=== PATIENT | female | born 1980 | race Caucasian/White ===

== ENCOUNTER 2017-03-01 14:01 | Emergency (ER) | payer OTHER ==
[2017-03-01] MEDS ORDERED: guaiFENesin/DEXTROMETHORPHAN 10 ML UDC PO STA (15:40)
[2017-03-01] MEDS ORDERED: BENZONATATE 100 MG CAPSULE PO STA (15:40)
[2017-03-01] MEDS ORDERED: BENZONATATE 100 MG CAPSULE PO ONE (15:46)
[2017-03-01] MEDS ORDERED: guaiFENesin/DEXTROMETHORPHAN 10 ML UDC ONE (15:46)
== END 2017-03-01 17:22 | disposition home or self-care (01) ==
DX: J40 Bronchitis, not specified as acute or chronic (principal)
CPT/HCPCS: 71020; 99283; A9270

== ENCOUNTER 2017-09-29 14:01 | Outpatient (CLI) | payer OTHER ==
--- NOTE | 2017-10-01 09:26 | MRI Report ---
EXAM: RIGHT KNEE MRI WITHOUT CONTRAST EXAM DATE: 09/29/2017 03:02 PM. CLINICAL HISTORY: Right knee pain. COMPARISON: Prior knee MRI 01/01/2016. TECHNIQUE: Multiplanar, multisequence T1-weighted and fluid-sensitive sequences of the knee without c ontrast. Other: None. FINDINGS: Cruciate ligaments: The anterior and posterior cruciate ligaments appear intact. Medial meniscus: Intact. No tear is identified. Lateral meniscus: Intact. No tear is identified. Collateral limits: The medial and fibular collateral limits appear intact. Bones and articular surfaces: Again demonstrated is a separate ossification along the medial margin o f the patella which may represent an old ununited fracture. There is a small amount of edema at the a pparent synchondrosis. Cartilage thinning and irregularity over the patella is similar to prior. Smal l focus of subcortical marrow edema at the posterior margin of the medial tibial plateau. Etiology un certain. Possible bone contusion or stress-related edema at the semimembranosus insertion. Small irre gular ossification at the inferior medial margin of the patella may represent another old fracture bu t is unchanged from prior. Extensor mechanism: The patellar tendon and quadriceps insertion appear intact. IMPRESSION: 1. No significant interval change in moderate patellar chondromalacia. 2. 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 3. New or increased focus of subcortical marrow edema at the posterior aspect of the medial tibial pl ateau. Possible stress-related edema at the semimembranosus insertion versus bone contusion. [facility] SECTION Referring Provider Line: [phone] SITE ID: [id number]
== END 2017-09-29 14:02 | disposition home or self-care (01) ==
LOC: DI 14:01
PROVIDERS: ATTEND Family Medicine
DX: M22.41 Chondromalacia patellae, right knee (principal); S82.001K Unspecified fracture of right patella, subsequent encounter for closed fracture with nonunion

== ENCOUNTER 2018-07-15 18:16 | Emergency (ER) | payer OTHER ==
--- NOTE | 2018-07-15 18:51 | ED Physician Documentation ---
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 - Present Medications Home Medications: Ambulatory Orders Medication Instructions Recorded Confirmed Phenazopyridine HCl [Pyridium] 200 mg PO TID PRN #6 tablet 07/15/18 Sulfamethoxazole/Trimethoprim 1 each PO BID #10 tablet 07/15/18 [Sulfamethoxazole-Tmp Ds Tablet] - Allergies Allergies/Adverse Reactions: Allergies Allergy/AdvReac Type Severity Reaction Status Date / Time No Known Drug Allergies Allergy Verified 07/15/18 18:51 - Social History Does the pt smoke?: No Smoking Status: Never smoker Does the pt drink ETOH?: Yes Does the pt have substance abuse?: No - Immunizations Immunizations are current?: Yes - POLST Patient has POLST: No PD ED PE NORMAL - Vitals Vital signs reviewed: Yes - General General: Alert and oriented X 3, No acute distress - Abdomen Abdomen: Normal bowel sounds, Soft, Non tender - Back Back: Other (Mild right flank tenderness) - Extremities Extremities: No edema, No calf tenderness / cord - Neuro Neuro: Alert and oriented X 3, Normal speech - Psych Psych: Normal mood, Normal affect Results - Vitals Vitals: Vital Signs - 24 hr 07/15/18 07/15/18 18:48 18:52 Temperature 37.2 C 99 C H Heart Rate 88 Respiratory 20 Rate Blood Pressure 114/81 H O2 Saturation 100 Oxygen O2 Source Room air - Labs Labs: Laboratory Tests 07/15/18 18:50 Urine Color YELLOW Urine Clarity N Urine pH 7.5 Ur Specific Mereta 1.015 Urine Protein NEGATIVE Urine Glucose (UA) NEGATIVE Urine Ketones NEGATIVE Urine Occult Blood SMALL H Urine Nitrite NEGATIVE Urine Bilirubin NEGATIVE Urine Urobilinogen 0.2 (NORMAL) Ur Leukocyte Esterase NEGATIVE Urine RBC 6-10 H Urine WBC 0-3 Ur Squamous Epith Cells MANY Squamous H Urine Bacteria Many H Ur Microscopic Review INDICATED Urine Culture Comments NOT INDICATED Urine HCG, Qual NEGATIVE PD MEDICAL DECISION MAKING - Sepsis Event Vital Signs: Vital Signs - 24 hr 07/15/18 07/15/18 18:48 18:52 Temperature 37.2 C 99 C H Heart Rate 88 Respiratory 20 Rate Blood Pressure 114/81 H O2 Saturation 100 Oxygen O2 Source Room air Departure - Departure Disposition: 01 Home, Self Care Clinical Impression: Cystitis Condition: Good Record reviewed to determine appropriate education?: Yes Instructions: ED UTI Cystitis Female Prescriptions: Phenazopyridine HCl [Pyridium] 200 mg PO TID PRN #6 tablet PRN Reason: dysuria Sulfamethoxazole/Trimethoprim [Sulfamethoxazole-Tmp Ds Tablet] 1 each PO BID #10 tablet Comments: Call your doctor to arrange a follow-up appointment, make the next available appointment. In the interim, return anytime if worse or if new symptoms develop.
[2018-07-15 18:53] VITALS: BP 114/81
[2018-07-15 19:11] LABS: BILIRUBIN,URINE NEGATIVE (NEGATIVE); GLUCOSE, URINE (UA) NEGATIVE (NEGATIVE); KETONES,URINE (UA) NEGATIVE (NEGATIVE); LEUKOCYTE ESTERASE, URINE NEGATIVE (NEGATIVE); NITRITE,URINE NEGATIVE (NEGATIVE); OCCULT BLOOD,URINE SMALL (NEGATIVE); PH,URINE 7.5 PH (5.0-7.5); PROTEIN,URINE NEGATIVE (NEGATIVE); UROBILINOGEN,URINE 0.2 (NORMAL) E.U./dL (NORMAL)
[2018-07-15 19:18] LABS: CLARITY,URINE N (CLEAR); HCG UR QUAL NEGATIVE
[2018-07-15 19:33] LABS: BACTERIA,URINE Many /HPF (None Seen); SQUAMOUS EPITHELIAL CELL,UR MANY Squamous (<= Few)
[2018-07-15] MEDS ORDERED: SULFAMETH/TRIMETH DS 800/160 MG TABLET PO STA (19:38)
[2018-07-15] MEDS ORDERED: PHENAZOPYRIDINE 100 MG TABLET PO STA (19:38)
== END 2018-07-15 19:46 | disposition home or self-care (01) ==
LOC: ED 18:16
DX: N30.90 Cystitis, unspecified without hematuria (principal)
CPT/HCPCS: 81001; 81025; 99283; A9270; 81003; 87086

== ENCOUNTER 2018-08-01 14:30 | Emergency (ER) | payer OTHER ==
[2018-08-01 15:41] LABS: BASOPHILS % (AUTO) 0.6 %; EOSINOPHILS % (AUTO) 0.2 %; HGB - HEMOGLOBIN 12.9 g/dL (12.0-16.0); LYMPHOCYTES # (AUTO) 1.8 10^3/uL (1.5-3.5); LYMPHOCYTES % (AUTO) 31.8 %; MEAN CORPUSCULAR HEMOGLOBIN 29.7 pg (27.0-31.0); MEAN CORPUSCULAR HGB CONC 33.7 g/dL (32.0-36.0); MEAN CORPUSCULAR VOLUME 87.9 fL (81.0-99.0); MEAN PLATELET VOLUME 8.7 fL (7.9-10.8); MONOCYTES # (AUTO) 0.5 10^3/uL (0.0-1.0); MONOCYTES % (AUTO) 8.6 %; NEUTROPHILS # (AUTO) 3.4 10^3/uL (1.5-6.6); NEUTROPHILS % (AUTO) 58.8 %; PLT - PLATELET COUNT 255 10^3/uL (130-450); RED BLOOD COUNT 4.36 10^6/uL (4.20-5.40); RED CELL DISTRIBUTION WIDTH 13.5 % (12.0-15.0); WHITE BLOOD COUNT 5.7 x10^3/uL (4.8-10.8)
[2018-08-01 15:48] LABS: ALBUMIN 4.6 g/dL (3.2-5.5); ALBUMIN/GLOBULIN RATIO 1.5 (1.0-2.2); BILIRUBIN,TOTAL 0.9 mg/dL (0.2-1.0); CALCIUM 9.2 mg/dL (8.5-10.3); CREATININE 0.7 mg/dL (0.4-1.0); TOTAL PROTEIN 7.6 g/dL (6.7-8.2)
--- NOTE | 2018-08-01 16:03 | CT Report ---
Reason: Right pupil dilated compared to left. Possible sz. Procedure Date: 08/01/2018 Accession Number: [id number] / [id number] Procedure: CT - Head W/O CPT Code: FULL RESULT: EXAM: CT HEAD EXAM DATE: 08/01/2018 03:52 PM. CLINICAL HISTORY: Right pupil dilated compared to left. Possible sz. COMPARISON: None. TECHNIQUE: Multiaxial CT images were obtained from the foramen magnum to the vertex. Reformats: Sagittal and coronal. IV contrast: None. In accordance with CT protocol optimization, one or more of the following dose reduction techniques were utilized for this exam: automated exposure control, adjustment of mA and/or KV based on patient size, or use of iterative reconstructive technique. FINDINGS: Parenchyma: No intraparenchymal hemorrhage. No evidence of mass, midline shift, or CT findings of infarction. Chin-white differentiation is distinct. Extraaxial Spaces: Normal for age. No subdural or epidural collections. Ventricles: Normal in size and position. Sinuses and Orbits: Imaged paranasal sinuses, orbits, and mastoids show no significant abnormality. Bones: Unremarkable. Other: None. IMPRESSION: Normal head CT. [facility]
--- NOTE | 2018-08-01 16:14 | ED Physician Documentation ---
History of Present Illness - Stated complaint Stated Complaint: ADVERSE MED REACTION - Chief complaint Chief Complaint: Neuro - History obtained from History obtained from: Patient - History of Present Illness Timing: Last night - Additonal information Additional information: The patient is a 38-year-old female who reports feeling confused and "mentally slow" today. She has a history of depression, and was prescribed Effexor which she took for the first time last night. The dose was 75 mg extended release. She reports that her children were unable to awaken her at 12:30 last night, and told her she was "stiff." Today she feels confused and had 4 or 5 episodes of vomiting. She went to work, but her coworkers became concerned because she was not acting right. When looking in the mirror, she noticed that her right pupil was dilated compared to the left. She denies history of similar symptoms in the past. She does feel slightly better now than she did earlier today. Review of Systems Constitutional: reports: Fatigue. denies: Fever Eyes: reports: Other (Dilated right pupil.) Ears: denies: Tinnitus/ringing Nose: denies: Congestion Throat: denies: Sore throat Cardiac: denies: Chest pain / pressure Respiratory: denies: Dyspnea, Cough GI: reports: Nausea, Vomiting. denies: Abdominal Pain, Diarrhea : denies: Dysuria Skin: denies: Rash Musculoskeletal: denies: Back pain, Extremity pain Neurologic: reports: Confused. 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 - Present Medications Home Medications: Ambulatory Orders Medication Instructions Recorded Confirmed Venlafaxine ER [Effexor ER] 75 mg PO DAILY 08/01/18 08/01/18 - Allergies Allergies/Adverse Reactions: Allergies Allergy/AdvReac Type Severity Reaction Status Date / Time No Known Drug Allergies Allergy Verified 08/01/18 14:43 - Social History Does the pt smoke?: No Smoking Status: Never smoker Does the pt drink ETOH?: Yes Does the pt have substance abuse?: No - Immunizations Immunizations are current?: Yes - POLST Patient has POLST: No PD ED PE NORMAL - Vitals Vital signs reviewed: Yes (normal) - General General: Alert and oriented X 3, Well developed/nourished - HEENT HEENT: Atraumatic, EOMI, Ears normal, Pharynx benign, Other (Right pupil is 5 mm, left pupil is 4 mm. Both are equally reactive to light and accommodation.) - Neck Neck: Supple, no meningeal sign, No adenopathy - Cardiac Cardiac: RRR, No murmur - Respiratory Respiratory: No respiratory distress, Clear bilaterally - Abdomen Abdomen: Soft, Non tender - Back Back: No CVA TTP - Derm Derm: No rash - Extremities Extremities: No tenderness to palpate, No edema, No calf tenderness / cord - Neuro Neuro: Alert and oriented X 3, No motor deficit, No sensory deficit Eye Opening: Spontaneous Motor: Obeys Commands Verbal: Oriented GCS Score: 15 Results - Vitals Vitals: Vital Signs - 24 hr 08/01/18 14:41 Temperature 36.6 C Heart Rate 93 Respiratory 18 Rate Blood Pressure 101/78 O2 Saturation 100 Oxygen O2 Source Room air - Labs Labs: Laboratory Tests 08/01/18 08/01/18 15:21 15:21 WBC 5.7 RBC 4.36 Hgb 12.9 Hct 38.3 MCV 87.9 MCH 29.7 MCHC 33.7 RDW 13.5 Plt Count 255 MPV 8.7 Neut # (Auto) 3.4 Lymph # (Auto) 1.8 Wirt # (Auto) 0.5 Eos # (Auto) 0.0 Baso # (Auto) 0.0 Absolute Nucleated RBC 0.00 Nucleated RBC % 0.0 Sodium 136 Potassium 3.5 Chloride 102 Carbon Dioxide 25 Anion Gap 9.0 BUN 14 Creatinine 0.7 Estimated GFR (MDRD) 94 Glucose 85 Calcium 9.2 Total Bilirubin 0.9 AST < 10 L ALT 14 Alkaline Phosphatase 54 Total Protein 7.6 Albumin 4.6 Globulin 3.0 Albumin/Globulin Ratio 1.5 Lipase 26 - Rads (name of study) head CT Radiology: Prelim report reviewed, EMP read contemporaneously, See rad report (Normal head CT.) PD MEDICAL DECISION MAKING - ED course Complexity details: reviewed results, re-evaluated patient, considered differential, d/w patient ED course: The patient's presentation is most likely a result of adverse reaction to Effex or. The mild anisocoria is puzzling, but there is no clinical evidence of acute intra-ocular abnormality, and head CT is normal. The patient's symptoms started appear slightly improved over the course of her time in the emergency department. CBC and chemistry panel are normal. I do not think further workup or emergent intervention is clinically indicated. I discussed with her the results of her workup, the importance of outpatient follow-up, as well as potentially worrisome signs or symptoms that should prompt reevaluation in the emergency department. - Sepsis Event Vital Signs: Vital Signs - 24 hr 08/01/18 14:41 Temperature 36.6 C Heart Rate 93 Respiratory 18 Rate Blood Pressure 101/78 O2 Saturation 100 Oxygen O2 Source Room air Departure - Departure Disposition: 01 Home, Self Care Clinical Impression: Adverse drug reaction Qualifiers: Encounter type: initial encounter Qualified Code(s): T50.905A - Adverse effect of unspecified drugs, medicaments and biological substances, initial encounter Condition: Stable Instructions: ED Drug React Adverse Other Follow-Up: VICTORIA SNIDER [Primary Care Provider] - Comments: Discontinue Effexor. Follow-up with your primary physician tomorrow as planned. Return to the emergency department if increasing mental confusion, persistent vomiting, or otherwise worsening symptoms. Forms: Activity restrictions Discharge Date/Time: 08/01/18 16:25
[2018-08-01 17:52] VITALS: BP 102/74
== END 2018-08-01 16:25 | disposition home or self-care (01) ==
LOC: ED 14:30
DX: R41.0 Disorientation, unspecified (principal); H57.02 Anisocoria; R11.2 Nausea with vomiting, unspecified; T43.215A Adverse effect of selective serotonin and norepinephrine reuptake inhibitors, initial encounter
CPT/HCPCS: 36415; 70450; 80053; 83690; 85025; 99283

== ENCOUNTER 2019-06-12 13:18 | Emergency (ER) | payer OTHER ==
[2019-06-12 13:26] VITALS: BP 116/80
--- NOTE | 2019-06-12 14:09 | ED Physician Documentation ---
History of Present Illness - Stated complaint Stated Complaint: RT SIDE FACIAL NUMBNESS - Chief complaint Chief Complaint: Neuro - History obtained from History obtained from: Patient - History of Present Illness Timing: Today Pain level max: 0 Pain level now: 0 - Additonal information Additional information: 38-year-old female presents the emergency department stating that the right side of her face felt swollen this morning. She states that she applied ice and went back to sleep. She woke up and has having numbness on the entirety of the face. She also states that she is having difficulty closing her right eye fully and moving the right side of her face. No recent illnesses. No neck or back pain. No headache. No recent trauma. Nothing makes it better or worse. Has never had similar symptoms in the past. 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 - Present Medications Home Medications: Ambulatory Orders Medication Instructions Recorded Confirmed Venlafaxine ER [Effexor ER] 75 mg PO DAILY 08/01/18 08/01/18 Valacyclovir HCl [Valacyclovir] 1,000 mg PO TID #21 tablet 06/12/19 predniSONE [Prednisone] 60 mg PO DAILY #21 tablet 06/12/19 - Allergies Allergies/Adverse Reactions: Allergies Allergy/AdvReac Type Severity Reaction Status Date / Time venlafaxine [From Effexor] Allergy Unknown Verified 06/12/19 13:27 - Social History Does the pt smoke?: No Smoking Status: Never smoker Does the pt drink ETOH?: Yes Does the pt have substance abuse?: No - Immunizations Immunizations are current?: Yes - POLST Patient has POLST: No PD ED PE NORMAL - Vitals Vital signs reviewed: Yes - General General: Alert and oriented X 3, No acute distress, Well developed/nourished - HEENT HEENT: Atraumatic, PERRL, EOMI, Ears normal, Moist mucous membranes, Pharynx benign - Neck Neck: Supple, no meningeal sign, No bony TTP, No adenopathy, No JVD, No bruit - Cardiac Cardiac: RRR, No murmur, Strong equal pulses - Respiratory Respiratory: No respiratory distress, Clear bilaterally - Abdomen Abdomen: Soft, Non tender, Non distended - Derm Derm: Warm and dry - Neuro Neuro: Alert and oriented X 3 - Psych Psych: Normal mood, Normal affect - Free text exam Free text exam: Patient with decreased movement of the right forehead with raising the eyebrows. Flattening of the nasolabial fold on the right side of the face. Decreased motion of the right side of the face. Positive Mcfadden's phenomena. Decreased sensation over the right side of the face as well. Otherwise normal neurological exam of the remainder of the body. Results - Vitals Vitals: Vital Signs - 24 hr 06/12/19 13:23 Temperature 36.7 C Heart Rate 76 Respiratory 16 Rate Blood Pressure 116/80 O2 Saturation 100 Oxygen O2 Source Room air PD MEDICAL DECISION MAKING - ED course Complexity details: considered differential, d/w patient ED course: 38-year-old female presents to the emergency room with what appears to be Mcfadden's palsy. Will place on prednisone and Valtrex. She is well-appearing, nontoxic. Afebrile. No evidence of acute stroke. No evidence of carotid dissection. No Rocky syndrome. Patient counseled regarding signs and symptoms for which I believe and urgent re-evaluation would be necessary. Patient with good understanding of and agreement to plan and is comfortable going home at this time This document was made in part using voice recognition software. While efforts are made to proofread this document, sound alike and grammatical errors may occur. Departure - Departure Disposition: 01 Home, Self Care Clinical Impression: Mcfadden's palsy Condition: Good Instructions: ED [place] Palsy Follow-Up: Your,doctor in 1 week [Other] Prescriptions: predniSONE [Prednisone] 60 mg PO DAILY #21 tablet Valacyclovir HCl [Valacyclovir] 1,000 mg PO TID #21 tablet Comments: Return if you worsen. Use the medications as prescribed. You can also use artificial tears if your right eye begins to feel dry. Follow-up with your doctor within 1 week for repeat evaluation. Discharge Date/Time: 06/12/19 14:37
== END 2019-06-12 14:37 | disposition home or self-care (01) ==
LOC: ED 13:18
DX: G51.0 Bell's palsy (principal)
CPT/HCPCS: 99282; 99284

== ENCOUNTER 2020-03-21 14:52 | Emergency (ER) | payer OTHER ==
--- NOTE | 2020-03-21 15:25 | ED Physician Documentation ---
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 Has 3 children age 18, 16, 13. Her 18-year-old is getting in few weeks. She states she has been feeling increasingly burned out at work and at home. Feels stressed. Does not feel suicidal or homicidal. She has been trying to see a psychiatrist or a counselor for the last year and a half, but has been unable to. Nothing makes it better or worse. She states she started crying today and does not know what to do. Review of Systems Constitutional: denies: Fever, Chills Nose: denies: Rhinorrhea / runny nose, Congestion GI: denies: Vomiting, Diarrhea Skin: denies: Rash Musculoskeletal: denies: Neck pain, Back pain Neurologic: denies: Focal weakness, Numbness, Headache Psychiatric: reports: Anxiety. 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 - Present Medications Home Medications: Ambulatory Orders Medication Instructions Recorded Confirmed Venlafaxine ER [Effexor ER] 75 mg PO DAILY 08/01/18 08/01/18 Valacyclovir HCl [Valacyclovir] 1,000 mg PO TID #21 tablet 06/12/19 predniSONE [Prednisone] 60 mg PO DAILY #21 tablet 06/12/19 Alprazolam [Xanax] 0.5 mg PO BID PRN #7 tablet 03/21/20 - Allergies Allergies/Adverse Reactions: Allergies Allergy/AdvReac Type Severity Reaction Status Date / Time venlafaxine [From Effexor] Allergy Unknown Verified 03/21/20 14:55 - Social History Does the pt smoke?: No Smoking Status: Former smoker Does the pt drink ETOH?: Yes Does the pt have substance abuse?: No - Immunizations Immunizations are current?: Yes - POLST Patient has POLST: No PD ED PE NORMAL - Vitals Vital signs reviewed: Yes - General General: Alert and oriented X 3, No acute distress, Well developed/nourished - HEENT HEENT: PERRL, Moist mucous membranes - Neck Neck: Supple, no meningeal sign - Cardiac Cardiac: RRR, Strong equal pulses - Respiratory Respiratory: No respiratory distress, Clear bilaterally - Abdomen Abdomen: Soft, Non tender, Non distended - Derm Derm: Warm and dry, No rash - Extremities Extremities: No edema, No calf tenderness / cord - Neuro Neuro: Alert and oriented X 3 - Psych Psych: Other (Tearful, anxious) Results - Vitals Vitals: Vital Signs - 24 hr 03/21/20 03/21/20 14:55 15:20 Temperature 37.0 C 36.9 C Heart Rate 90 84 Respiratory 14 20 Rate Blood Pressure 144/87 H 115/83 H O2 Saturation 99 99 Oxygen O2 Source Room air PD MEDICAL DECISION MAKING - ED course Complexity details: re-evaluated patient, considered differential, d/w patient, d/w ux consultant (Social work) ED course: Social work consulted and evaluated the patient. We will prescribe a small amount of Xanax for home. She will follow-up with an outpatient counselor. She contracts for safety. Patient counseled regarding signs and symptoms for which I believe and urgent re-evaluation would be necessary. Patient with good understanding of and agreement to plan and is comfortable going home at this time This document was made in part using voice recognition software. While efforts are made to proofread this document, sound alike and grammatical errors may occur. Departure - Departure Disposition: 01 Home, Self Care Clinical Impression: Anxiety Condition: Good Instructions: ED Panic Attack Follow-Up: your,doctor in 1 week [Other] Prescriptions: Alprazolam [Xanax] 0.5 mg PO BID PRN #7 tablet PRN Reason: Anxiety Comments: You can use the Xanax as needed for anxiety. Do not drive or operate heavy machinery while taking this medication. Return if you worsen. Follow-up with a counselor as directed by social work today. Crisis Line and is available to talk to someone [email or web address] is also available to chat with someone online if you prefer. There are also many resources on this website and apps for your phone to help with your mental health You can also text the word START to [phone] to chat with someome via text.
[2020-03-21 16:06] VITALS: BP 116/80
== END 2020-03-21 16:05 | disposition home or self-care (01) ==
LOC: ED 14:52
DX: F41.9 Anxiety disorder, unspecified (principal); Z87.891 Personal history of nicotine dependence
CPT/HCPCS: 99283; 99284

== ENCOUNTER 2021-02-21 07:00 | Outpatient (CLI) | payer OTHER ==
--- NOTE | 2021-02-21 17:48 | XRAY Report ---
PROCEDURE: Chest 2 View X-Ray INDICATIONS: COUGH TECHNIQUE: 2 view(s) of the chest. COMPARISON: None. FINDINGS: Surgical changes and devices: None. Lungs and pleura: No pleural effusions or pneumothorax. Lungs are clear. Mediastinum: Mediastinal contours are normal. Heart size is normal. Bones and chest wall: No suspicious bony abnormalities. Soft tissues appear unremarkable. IMPRESSION: Normal for age, source of cough is not found. Reviewed by: Gaurang Begum MD on 02/21/2021 5:47 PM PDT Approved by: Gaurang Begum MD on 02/21/2021 5:47 PM PDT Station ID: [id number]
== END 2021-02-21 23:59 | disposition home or self-care (01) ==
LOC: DI.N 07:00
PROVIDERS: ATTEND Emergency Medicine
DX: R05 Cough (principal)

== ENCOUNTER 2021-03-13 13:06 | Outpatient (CLI) | payer OTHER ==
--- NOTE | 2021-03-13 18:11 | XRAY Report ---
PROCEDURE: Hand 3 View RT INDICATIONS: R HAND PX TECHNIQUE: 3 views of the hand(s) acquired. COMPARISON: None FINDINGS: Bones: No fractures or dislocations. No suspicious bony lesions. Soft tissues: No suspicious soft tissue calcifications. IMPRESSION: No visualized acute fracture or dislocation. However, occult injury cannot be excluded. Recommend itzel rt interval imaging follow-up in 7-10 days as clinically indicated for additional evaluation. Reviewed by: Tyesha Ely MD on 03/13/2021 6:10 PM PDT Approved by: Tyesha Ely MD on 03/13/2021 6:10 PM PDT Station ID: [id number]
== END 2021-03-13 23:59 | disposition home or self-care (01) ==
LOC: DI.N 13:06
PROVIDERS: ATTEND Family Medicine
DX: M79.641 Pain in right hand (principal)

== ENCOUNTER 2021-03-17 11:50 | Outpatient (CLI) | payer OTHER ==
--- NOTE | 2021-03-17 12:15 | XRAY Report ---
PROCEDURE: Hand 3 View RT INDICATIONS: DISPLACED FRACTURE OF RIGHT RING FINGER TECHNIQUE: 3 views of the hand(s) acquired. COMPARISON: 3 of the right hand, 3 views, 03/13/2021. FINDINGS: Bones: Minimally displaced fracture at the base of the fourth proximal phalanx is again noted with st able alignment. Bone details are obscured by overlying cast. No suspicious bony lesions. Soft tissues: No suspicious soft tissue calcifications. IMPRESSION: Stable alignment of fourth proximal phalangeal base fracture. Bone details are obscured by overlying cast. Reviewed by: Shila Patiño MD on 03/17/2021 12:14 PM PDT Approved by: Shila Patiño MD on 03/17/2021 12:14 PM PDT Station ID: [id number]
== END 2021-03-17 23:59 | disposition home or self-care (01) ==
LOC: DI.N 11:50
PROVIDERS: ATTEND Physician Assistant
DX: S62.614D Displaced fracture of proximal phalanx of right ring finger, subsequent encounter for fracture with routine healing (principal)

== ENCOUNTER 2021-09-29 12:06 | Outpatient (CLI) | payer OTHER ==
--- NOTE | 2021-09-29 18:49 | XRAY Report ---
PROCEDURE: Toe(s) LT INDICATIONS: L 4TH TOE PX TECHNIQUE: 2 views of the fourth toe(s) acquired. AP view of the foot. COMPARISON: None. FINDINGS: BONES/JOINTS: Mildly comminuted fracture of the fourth proximal phalanx. The remaining visualized oss eous structures appear maintained. Postsurgical change of the distal first metatarsal with no evidenc e of hardware compromise. SOFT TISSUES: No focal abnormality. IMPRESSION: 1.Mildly comminuted fracture of the fourth proximal phalanx. Reviewed by: Forest Smith MD on 09/29/2021 6:47 PM PST Approved by: Forest Smith MD on 09/29/2021 6:47 PM PST Station ID: [id number]
== END 2021-09-29 23:59 | disposition home or self-care (01) ==
LOC: DI.N 12:06
PROVIDERS: ATTEND Nurse Practitioner
DX: S92.512A Displaced fracture of proximal phalanx of left lesser toe(s), initial encounter for closed fracture (principal)
CPT/HCPCS: 73660